=== PATIENT | female | born 1980 | race African-American/Black ===

== ENCOUNTER 2017-08-09 07:46 | Emergency (ER) | payer SELFPAY ==
[~2017-08-09] VITALS: Ht 160 cm; Wt 57.0 kg
[~2017-08-09 07:46] MED LIST: CIPR500T4 PO
[2017-08-09 07:48] VITALS: BP 117/84; PULSE 79; RESP 14; TEMP 98.2; O2SAT 99
--- NOTE | 2017-08-09 08:52 | PD ---
HPI Chief Complaint: Eye Problems/Injury Time Seen by Provider: 08:13 Travel History International Travel<30 days: No Contact w/Intl Traveler<30days: No Traveled to known affect area: No History of Present Illness HPI patient experienced pain yesterday on her right eye and then this morning woke up with right eyelid swelling and more pain....patient denies fever/cough/runny nose/n/v/d/ all:denies pmhx:denies pshx:denies PFSH Past Medical History Cancer: No Cardiovascular Problems: No Cerebrovascular Accident: No Diminished Hearing: No Endocrine: No Gastrointestinal Disorders: No Genitourinary: No Headaches: Yes Immune Disorder: No Implanted Vascular Access Dvce: No Musculoskeletal: No Neurologic: No Psychiatric: No Reproductive: No Respiratory: No Migraines: No Myocardial Infarction: No Seizures: No Influenza Vaccination: No ?: Not : 2 Para: 1 : 1 Past Surgical History Surgical History: No Previous Surgery Abdominal Surgery: No Cardiac Surgery: No Section: Yes Ear Surgery: No Endocrine Surgery: No Eye Surgery: No Genitourinary Surgery: No Gynecologic Surgery: No Oral Surgery: No Thoracic Surgery: No Other Surgery: Yes (C/S 06/22/12) Social History Alcohol Use: Yes (OCCASIONAL) Tobacco Use: Yes (1/2 PPD) Substance Use: No Allergies-Medications (Allergen,Severity, Reaction): Coded Allergies: No Known Allergies (Verified Adverse Reaction, Unknown, 08/09/17) Reported Meds & Prescriptions Reported Meds & Active Scripts Active No Active Prescriptions or Reported Medications Review of Systems Except as stated in HPI: all other systems reviewed are Neg Eyes: Positive: Pain Physical Exam Narrative GENERAL: SKIN: Warm and dry. HEAD: Atraumatic. Normocephalic. EYES: Pupils equal and round. No scleral icterus. No injection or drainage. however right superior eyelid is edematous. ENT: No nasal bleeding or discharge. Mucous membranes pink and moist. NECK: Trachea midline. No JVD. CARDIOVASCULAR: Regular rate and rhythm. RESPIRATORY: No accessory muscle use. Clear to auscultation. Breath sounds equal bilaterally. GASTROINTESTINAL: Abdomen soft, non-tender, nondistended. MUSCULOSKELETAL: Extremities without clubbing, cyanosis, or edema. No obvious deformities. NEUROLOGICAL: Awake and alert. No obvious cranial nerve deficits. Motor grossly within normal limits. Five out of 5 muscle strength in the arms and legs. Normal speech. PSYCHIATRIC: Appropriate mood and affect; insight and judgment normal. Data Data Last Documented VS Vital Signs Date Time Temp Pulse Resp B/P (MAP) Pulse Ox O2 Delivery O2 Flow Rate FiO2 08/09/17 07:48 98.2 79 14 117/84 (95) 99 Orders Orders Amoxicillin (Trimox) (08/09/17 09:00) Ketorolac Inj (Toradol Inj) (08/09/17 09:00) MDM Medical Decision Making Medical Screen Exam Complete: Yes Emergency Medical Condition: Yes Medical Record Reviewed: Yes Differential Diagnosis stye v blepharitis v conjunctivitis Narrative Course upon examination clinically right blepharitis found, clear conjunctiva Diagnosis Primary Impression: Blepharitis of eyelid of right eye Qualified Codes: H01.001 - Unspecified blepharitis right upper eyelid Patient Instructions: Blepharitis (ED), General Instructions Scripts Tramadol (Ultram) 50 Mg Tab 50 MG PO Q6H Y for PAIN, #14 TAB 0 Refills Prov: Chandrakant Hall MD 08/09/17 Amoxicillin (Amoxicillin) 500 Mg Tab 1000 MG PO BID for Infection for 7 Days, #28 TAB 0 Refills Prov: Chandrakant Hall MD 08/09/17 Disposition: 01 DISCHARGE HOME Condition: Stable Chandrakant Hall MD Aug 09, 2017 08:52
[2017-08-09] MEDS ORDERED: AMOX500T PO (08:55)
[2017-08-09] MEDS ORDERED: TRAM50 PO (08:55)
[2017-08-09] MEDS ORDERED: AMOXICILLIN (TRIHYDRATE) 500 MG CAP PO ONE (09:00)
[2017-08-09] MEDS ORDERED: KETOROLAC TROMETHAMINE 60 MG/2 ML (IM) VIAL IM ONE (09:00)
== END 2017-08-09 10:27 | disposition home or self-care (01) ==
LOC: NEPC 07:46
DX: H01.003 Unspecified blepharitis right eye, unspecified eyelid (principal); F17.200 Nicotine dependence, unspecified, uncomplicated
CPT/HCPCS: 96372; 99284; J1885